=== PATIENT | female | born 1970 | race American Indian/Alaskan Native ===

== ENCOUNTER 2022-01-03 09:11 | Outpatient (CLI) | payer MEDICAID ==
--- NOTE | 2022-01-03 10:25 | XRay Report ---
Bilateral hands-2 views each INDICATION: PAIN IN RIGHT WRIST. COMPARISON: None available. IMPRESSION: No acute osseous abnormality. Normal alignment. 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 Soft tissues are unr emarkable. Signer Name: Lobo Florez MD Signed: 01/03/2022 10:20 AM Workstation Name: [id number]
--- NOTE | 2022-01-03 10:30 | XRay Report ---
Single frontal weightbearing image of the knees INDICATION: EFFUSION,RIGHT KNEE. COMPARISON: None available. IMPRESSION: No acute osseous abnormality. Bilateral femorotibial degenerative arthrosis is present, most advanced in each medial compartment (moderate). Mention is made of a joint effusion of the righ t knee but this is not evaluated on this exam without a lateral view. Signer Name: Lobo Florez MD Signed: 01/03/2022 10:26 AM Workstation Name: [id number]
== END 2022-01-03 09:12 | disposition home or self-care (01) ==
LOC: XRAY 09:11
PROVIDERS: ATTEND Orthopaedic Surgery
DX: M17.0 Bilateral primary osteoarthritis of knee (principal); M25.461 Effusion, right knee; M19.042 Primary osteoarthritis, left hand; M19.041 Primary osteoarthritis, right hand
CPT/HCPCS: 73565

== ENCOUNTER 2022-03-06 11:29 | Outpatient (CLI) | payer MEDICAID ==
--- NOTE | 2022-03-06 14:06 | XRay Report ---
PELVIS 2 VIEWS INDICATION: M25.559 PAININ UNSPECIFIED HIP. COMPARISON: None. IMPRESSION: No acute osseous or soft tissue abnormality. No significant DJD. Signer Name: Stone Bravo Jr, MD Signed: 03/06/2022 2:02 PM Workstation Name: [id number]
== END 2022-03-06 11:30 | disposition home or self-care (01) ==
LOC: XRAY 11:29
PROVIDERS: ATTEND Orthopaedic Surgery
DX: M25.559 Pain in unspecified hip (principal)
CPT/HCPCS: 72170

== ENCOUNTER 2022-04-03 10:37 | Outpatient (CLI) | payer MEDICAID ==
--- NOTE | 2022-04-03 13:56 | XRay Report ---
BILATERAL SHOULDERS 6 VIEWS INDICATION / CLINICAL INFORMATION: BILATERAL SHOULDER PAIN COMPARISON: None available. FINDINGS: BONES and JOINT(S): No acute fracture or subluxation. No significant arthritis. SOFT TISSUES: No significant abnormality. ADDITIONAL FINDINGS: None. IMPRESSION: No significant abnormality to explain the patient's shoulder pain. Signer Name: Paras Astorga MD Signed: 04/03/2022 1:52 PM Workstation Name: [email or web address]
--- NOTE | 2022-04-03 13:58 | XRay Report ---
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 FINDINGS: VERTEBRAE: No acute fracture. Normal alignment. No cortical destruction is seen to suggest osteomyeli tis. DISC SPACES: Mild discogenic degenerative changes are seen at L3-L4, L4-L5 and L5-S1. FACET JOINTS: There is bilateral facet arthropathy at L4-L5 and L5-S1. SOFT TISSUES: No significant abnormality. ADDITIONAL FINDINGS: No additional significant findings. IMPRESSION: 1. No radiographic evidence of osteomyelitis of the lumbar spine. 2. Mild lumbar spondylosis. Signer Name: Paras Astorga MD Signed: 04/03/2022 1:53 PM Workstation Name: [email or web address]
== END 2022-04-03 10:38 | disposition home or self-care (01) ==
LOC: XRAY 10:37
PROVIDERS: ATTEND Orthopaedic Surgery
DX: M47.817 Spondylosis without myelopathy or radiculopathy, lumbosacral region (principal); M46.21 Osteomyelitis of vertebra, occipito-atlanto-axial region; M25.511 Pain in right shoulder; M25.512 Pain in left shoulder
CPT/HCPCS: 72110